=== PATIENT | male | born 1960 | race Caucasian/White ===

== ENCOUNTER 2017-12-01 06:09 | Day surgery (SDC) | payer OTHER ==
[2017-11-29 10:26] VITALS: BMI 27.1
[2017-12-01] MEDS ORDERED: methylPREDNISolone ACET (DEPO) 40 MG/1 ML VIAL ONE (07:07)
[2017-12-01] MEDS ORDERED: LIDOCAINE 1%/EPI 1:100000 (20 ML MULTI DOSE VIAL) ONE (07:07)
[2017-12-01] MEDS ORDERED: THROMBIN (BOVINE) 5,000 UNIT VIAL TP ONE (07:07)
[2017-12-01] MEDS ORDERED: oxyCODONE HCL 10 MG SUSTAINED ACTING TABLET PO STA (08:47)
--- NOTE | 2017-12-01 09:08 | HP ---
History & Physical Update - History History: No Change - Physical Physical: No Change - Assessment Assessment: No Change - Plan Plan: No Change (Initial H&P is located in his paper chart. No new complaints or medications. Stopped taking his ASA 1 week ago as directed.)
[2017-12-01] MEDS ORDERED: DEXAMETHASONE SOD PHOSPHATE/PF 10 MG/ML SDV ONE (09:58)
[2017-12-01] MEDS ORDERED: BUPIVACAINE HCL/PF (5 MG/ML) 30 ML VIAL IJ ONE (09:59)
[2017-12-01] MEDS ORDERED: MIDAZOLAM HCL 2 MG/2 ML SINGLE DOSE VIAL ONE ×2 (09:59→11:45)
[2017-12-01] MEDS ORDERED: oxyCODONE HCL 5 MG TABLET PO PRN (11:09)
[2017-12-01] MEDS ORDERED: ONDANSETRON 4 MG/2 ML VIAL IVPUSH PRN (11:09)
[2017-12-01] MEDS ORDERED: LACTATED RINGERS SOLUTION 1,000 ML IV SCH (11:15)
[2017-12-01] MEDS ORDERED: ceFAZolin SODIUM 1 GM VIAL ONE (11:42)
[2017-12-01] MEDS ORDERED: DEXAMETHASONE SOD PHOSPHATE 4 MG/1 ML VIAL ONE (11:42)
[2017-12-01] MEDS ORDERED: ONDANSETRON 4 MG/2 ML VIAL ONE (11:42)
--- NOTE | 2017-12-01 13:24 | OP ---
Operative Note - Note: Operative Date: 12/01/17 Pre-Operative Diagnosis: Spinal stenosis L4-S1 with radiculopathy Operation: Bilateral Laminectomy L4-S1 Post-Operative Diagnosis: Same as Pre-op Surgeon: Forrest Vasquez Machine Egg Washer: Wesley Franco Anesthesiologist/CHORE TENDER: Rigoberto Heart ([facility]) Anesthesia: Spinal Estimated Blood Loss (mls): 20 Fluid Volume Replaced (mls): 750 Operative Report Dictated: Yes
--- NOTE | 2017-12-01 13:25 | SURG ---
Surgery Service Counselor Note Service Counselor: Wesley Franco PA-C Date of Service: 12/01/17 Diagnosis: L4-S1 spinal stenosis with radiculopathy Procedure: Bilateral laminectomy L4-S1 I was present for the entirety of the operative procedure. For further detail, please refer to operative report. Visit type - Case Type Case Type: Scheduled Admission - New patient This patient is new to me today: Yes Date on this admission: 12/01/17
--- NOTE | 2017-12-01 13:39 | OP ---
DATE OF OPERATION: 12/01/2017 PREOPERATIVE DIAGNOSIS: Spinal stenosis L4-L5, L5-S1. POSTOPERATIVE DIAGNOSIS: Spinal stenosis L4-L5, L5-S1. PROCEDURE PERFORMED: Laminectomy L4-L5, L5-S1. SURGEON: Forrest Vasquez MD AIR EXPORT LOGISTICS MANAGER: CATHERINE Barros ESTIMATED BLOOD LOSS: 50 mL. IV FLUIDS: Per Anesthesia. ANESTHESIA: Spinal/TLIP. COMPLICATIONS: There were none. DISPOSITION: The patient was brought to the PACU in stable condition. INDICATIONS FOR SURGERY: The patient is a 56-year-old gentleman who has been suffering from pain from his back down his legs. X-rays and MRI were completed, which noted that he had spinal stenosis at L4-S1. He had gone through an exhaustive course of treatment for this, which included medications, physical therapy as well as injections. Unfortunately, his pain continued to persist despite all this. At this point, risks, benefits, and alternatives were discussed, and the patient consented to surgery. DESCRIPTION OF PROCEDURE: The patient was brought to the operating room by the Anesthesia staff. After appropriate patient identification was performed, spinal anesthesia and TLIP block were given. The patient was then positioned prone onto the Sam frame with all areas and bony prominences well padded at this time. Two needles were placed into his back to tanisha off the L4 and S1 segments, and x-ray was taken to confirm this was correct. The needle was then removed, and 10 mL of lidocaine with epinephrine was injected into his back. At this time, his back was prepped and draped in a sterile manner. At this point, a time-out was completed. An incision was made from the top of L4 down to the bottom of S1. Dissection was carried down to the fascia. Fascia was then split open at this time. Appropriate retractor was then placed in. A spinal needle was placed onto the L4 lamina to tanisha off the L5-S1 level. An x-ray was taken to confirm this was correct. Needle was removed. The interspinous ligament at L4-L5 and L5-S1 was removed. The spinous process at L5 was removed. A bur was used to remove the lamina at L5. A complete decompression was performed such that by the end of the procedure, the L5-S1 nerve roots appeared to be well decompressed. All bleeding was well controlled at this time. Steroids was placed over the nerve root. FloSeal was placed over that. The fascia was closed with a No. 1 Vicryl suture. The subcutaneous tissue was closed with 2-0 Vicryl suture. The skin was closed with 3-0 Monocryl suture. Dermabond was applied. Steri-Strips were applied. Sterile dressing was applied. The patient was placed supine on the OR bed and brought to the PACU in stable condition. Arnie WELLINGTON/[id number] MTDD
[2017-12-01 16:05] VITALS: TEMP 98.5
[2017-12-01 17:39] VITALS: BP 106/71; PULSE 85
== END 2017-12-01 17:30 | disposition home or self-care (01) ==
LOC: FASU 06:09
PROVIDERS: ATTEND Orthopaedic Surgery Orthopaedic Surgery of the Spine
PROC: 01NB0ZZ Release Lumbar Nerve, Open Approach (ICD-10-PCS; principal; 2017-12-01 12:04)
DX: M48.061 Spinal stenosis, lumbar region without neurogenic claudication (principal); M48.07 Spinal stenosis, lumbosacral region
CPT/HCPCS: 72110-TC-FY; 82962